=== PATIENT | male | born 1970 | race Native Hawaiian/Other Pacific Islander ===

== ENCOUNTER → 2018-09-09 | Outpatient (CLI) | payer BC, OTHER ==
[~2018-09-09] MED LIST: GLIP5TAB13 PO; LOSA1TAB15 PO; METF-442 PO
[2018-09-09 23:32] LABS: *BILIRUBIN,URIN NEGATIVE (NEGATIVE); *CLARITY,URINE CLEAR (CLEAR); *COLOR,URINE YELLOW (YELLOW); *KETONES,URINE TRACE (NEGATIVE); *UROBILINOGEN,URINE 0.2 E.U./dl (NORMAL); LEUKOCYTE ESTERASE ,URINE NEGATIVE (NEGATIVE); NITRITE, URINE NEGATIVE (NEGATIVE); UGLUCOSE 2+ (NEGATIVE)
[2018-09-09 23:34] LABS: BASOPHILS # (AUTO) 0.1 K/uL (0.0-8.0); BASOPHILS % (AUTO) 0.9 % (0.0-2.0); EOSINOPHILS # (AUTO) 0.2 K/uL (0.0-0.7); EOSINOPHILS % (AUTO) 2.4 % (0.0-7.0); HEMATOCRIT 53.7 % (36.7-47.1); HEMOGLOBIN 17.9 g/dL (12.5-16.3); LYMPHOCYTES # (AUTO) 1.9 K/uL (20.0-40.0); LYMPHOCYTES % (AUTO) 23.7 % (20.5-51.5); MEAN CORPUSCULAR HEMOGLOBIN 30.7 uug (23.8-33.4); MEAN CORPUSCULAR HGB CONC 33 g/dL (32.5-36.3); MEAN CORPUSCULAR VOLUME 91.9 fL (73.0-96.2); MONOCYTES # (AUTO) 0.6 K/uL (2.0-10.0); MONOCYTES % (AUTO) 7.2 % (0.0-11.0); NEUTROPHILS # (AUTO) 5.3 K/uL (1.8-8.9); NEUTROPHILS % (AUTO) 65.8 % (38.5-71.5); PLATELET COUNT (AUTO) 257 K/uL (152-348); RED BLOOD CELL COUNT(AUTO) 5.84 MIL/uL (4.06-5.63)
[2018-09-09 23:41] LABS: *BLOOD, URINE TRACE (NEGATIVE)
[2018-09-09 23:48] LABS: BACTERIA,URINE NONE SEEN /HPF (NONE SEEN); RBC,URINE 0-3 /HPF (0-3); SQUAMOUS EPITHELIAL CELL,UR NONE SEEN /HPF (NONE SEEN); WBC,URINE 0-3 /HPF (0-3)
[2018-09-10 00:03] LABS: THYROID STIMULATING HORMONE 1.473 mIU/mL (0.358-3.740)
[2018-09-10 00:29] LABS: BILIRUBIN,TOTAL 0.9 mg/dL (0.2-1.0); CREATININE 0.8 mg/dL (0.6-1.3); TOTAL PROTEIN, SERUM 8.3 g/dL (6.4-8.2)
== END | disposition home or self-care (01) ==
LOC: LAB 23:11
DX: Z00.00 Encounter for general adult medical examination without abnormal findings (principal)
CPT/HCPCS: 36415; 82747; 84153; 84443; 85014; 85025

== ENCOUNTER 2019-05-08 03:56 | Emergency (ER) | payer BC, OTHER ==
[~2019-05-08] VITALS: Ht 167.6 cm; Wt 95.3 kg
[2019-05-08] MEDS ORDERED: AZITHROMYCIN 250 MG TABLET ONE (04:20)
[2019-05-08] MEDS ORDERED: AZITHROMYCIN 250 MG TABLET PO ONE (04:30)
[2019-05-08 05:17] VITALS: BP 145/93
== END 2019-05-08 04:30 | disposition home or self-care (01) ==
LOC: ER 04:06
DX: J06.9 Acute upper respiratory infection, unspecified (principal); I10 Essential (primary) hypertension; K21.9 Gastro-esophageal reflux disease without esophagitis; E11.9 Type 2 diabetes mellitus without complications; F17.200 Nicotine dependence, unspecified, uncomplicated; Z88.0 Allergy status to penicillin; Z79.84 Long term (current) use of oral hypoglycemic drugs; Z79.899 Other long term (current) drug therapy
CPT/HCPCS: A4663; Q0144

== ENCOUNTER 2021-05-03 07:37 | Emergency (ER) | payer BC, OTHER ==
[~2021-05-03] VITALS: Ht 167.6 cm; Wt 93.0 kg
[2021-05-03] MEDS: predniSONE 20 MG TABLET PO ONE (07:56)
[2021-05-03] MEDS ORDERED: predniSONE 10 MG TABLET ONE (08:03)
[2021-05-03] MEDS ORDERED: predniSONE 50 MG TABLET ONE (08:03)
[2021-05-03] MEDS ORDERED: ALBU8.5H8 INH (08:44)
[2021-05-03] MEDS ORDERED: PRED50TA PO (08:44)
--- NOTE | 2021-05-03 08:50 | NUR ---
Patient discharged to home in stable condition with brisk steady gait. Written and verbal after care instructions given. Patient verbalizes understanding of instructions. Stressed follow up primary doctor or return to ER for worsening s/s. STOP SMOKING please.
== END 2021-05-03 08:50 | disposition home or self-care (01) ==
LOC: ER 07:37
DX: J45.909 Unspecified asthma, uncomplicated (principal); I10 Essential (primary) hypertension; K21.9 Gastro-esophageal reflux disease without esophagitis; E11.9 Type 2 diabetes mellitus without complications; F17.210 Nicotine dependence, cigarettes, uncomplicated; Z79.899 Other long term (current) drug therapy
CPT/HCPCS: 71045; 99283; J7512 ×2; A4663

== ENCOUNTER 2022-06-12 22:58 | Emergency (ER) | payer BC, OTHER ==
[~2022-06-12] VITALS: Ht 170.2 cm; Wt 93.0 kg
[~2022-06-12 22:58] MED LIST changes: +ALBU8.5H8 INH; +PRED50TA PO
--- NOTE | 2022-06-12 23:16 | NUR ---
MD at bedside for exam, patient has been informed of plan of care, no s/s of any distress noted.
[2022-06-12] MEDS ORDERED: BLOO-1730 MC (23:40)
[2022-06-12] MEDS ORDERED: HYDR-3980 PO (23:40)
--- NOTE | 2022-06-12 23:57 | NUR ---
ACI given, remains stable for discharge.
[2022-06-12 23:58] VITALS: BP 103/65
== END 2022-06-12 23:59 | disposition home or self-care (01) ==
LOC: ER 22:59
DX: M79.631 Pain in right forearm (principal); E11.9 Type 2 diabetes mellitus without complications; I10 Essential (primary) hypertension; K21.9 Gastro-esophageal reflux disease without esophagitis; F17.210 Nicotine dependence, cigarettes, uncomplicated; Z79.899 Other long term (current) drug therapy
CPT/HCPCS: A4663